=== PATIENT | female | born 1945 | race Caucasian/White ===

== ENCOUNTER 2018-03-24 13:17 | Inpatient (IN) | payer MEDICARE, OTHER ==
--- NOTE | 2018-03-24 13:31 | Emergency Department Record ---
History of Present Illness - General Chief Complaint: Back Pain/Injury Stated Complaint: BACK PAIN,INCONTROLLABLE SHAKING, HEADACHE Time Seen by Provider: 03/24/18 13:19 Source: Patient Mode of Arrival: Wheelchair Limitations: No limitations - History of Present Illness Initial Comments: 72 yo female presents with back pain and shaking all over. She reports she does have daily, chronic pain but at 5am she woke with a significant change in the pain. She has low back pain and now she feels shaky allover. She denies any fever but she does have the chills. She reports that she had lumbar surgery in [facility] last year. No fall recently. Over a month ago she fell in [place] and was evaluated in an ER. She did not have any lasting symptoms from the fall. She has not been to [facility] for about 40 years. She reports her back surgery was for spinal stenosis of the lumbar spine. She has chronic urinary incontinence, s/p bladder surgery without improvement. She does have some increased urinary frequency. She has had a mild non productive cough recently as well. She has chronic peripheral neuropathy of her feet as well. She takes Oxycontin BID for her normal pain. MD Complaint: Back pain -: Hour(s) (7) Place: Home Radiation: Other (back) Severity: Moderate Quality: Aching Consistency: Constant Improves With: None Worsens With: Walking Context: Unknown Associated Symptoms: Difficulty walking, Loss of appetite, Other (shaking) - Related Data Home Medications Medication Instructions Recorded Confirmed Last Taken Amlodipine Besylate 5 mg PO DAILY 03/24/18 03/24/18 Unknown Baclofen 10 mg PO DAILY 03/24/18 03/24/18 Unknown Folic Acid 0.8 mg PO DAILY 03/24/18 03/24/18 Unknown Gabapentin [Neurontin] 600 mg PO TID 03/24/18 03/24/18 Unknown Levothyroxine Sodium 200 mcg PO DAILY 03/24/18 03/24/18 Unknown Melatonin 20 mg PO QHS 03/24/18 03/24/18 Unknown Omeprazole 20 mg PO DAILY 03/24/18 03/24/18 Unknown Oxycodone HCl 15 mg PO Q8H 03/24/18 03/24/18 Unknown Sertraline HCl [Zoloft] 100 mg PO DAILY 03/24/18 03/24/18 Unknown Allergies Allergy/AdvReac Type Severity Reaction Status Date / Time Penicillins Allergy PT UNSURE Verified 03/24/18 13:26 OF REACTION Sulfa (Sulfonamide Allergy PT UNSURE Verified 03/24/18 13:26 Antibiotics) OF REACTION tetracycline Allergy PT UNSURE Verified 03/24/18 13:26 OF REACTION Review of Systems Constitutional: Reports: Chills Eyes: Denies: Eye discharge, Eye pain, Photophobia, Vision change ENT: Denies: Congestion, Throat pain Respiratory: Reports: Cough (mild non productive). Denies: Dyspnea Cardiovascular: Denies: Chest pain, Palpitations, Syncope Endocrine: Reports: Fatigue Gastrointestinal: Reports: Nausea. Denies: Abdominal pain, Diarrhea, Vomiting Genitourinary: Reports: Dysuria, Frequency, Incontinence, Urgency. Denies: Hematuria Musculoskeletal: Denies: Arthralgia, Back pain, Myalgia, Neck pain Skin: Denies: Bruising, Change in color, Rash Neurological: Reports: Weakness. Denies: Headache, Numbness Psychiatric: Reports: Anxiety Hematological/Lymphatic: Denies: Blood Clots, Easy bleeding, Easy bruising Physical Exam - General General Appearance: Alert, Oriented x3, Cooperative, No acute distress Limitations: No limitations - Head Head exam: Atraumatic, Normocephalic, Normal inspection - Eye Eye exam: Normal appearance, PERRL. negative: Conjunctival injection, Scleral icterus Pupils: Normal accommodation - ENT ENT exam: Normal exam Ear exam: Normal external inspection Nasal Exam: Normal inspection Mouth exam: Normal external inspection - Neck Neck exam: Normal inspection. negative: Lymphadenopathy - Respiratory Respiratory exam: Normal lung sounds bilaterally. negative: Respiratory distress, Rhonchi, Stridor, Wheezes - Cardiovascular Cardiovascular Exam: Normal rhythm, Normal heart sounds, Tachycardia. negative : Regular rate Peripheral Pulses: 2+: Radial (R), Radial (L) - GI/Abdominal GI/Abdominal exam: Soft, Other (morbid obesity but soft and non tender). negative: Distended, Rebound, Rigid, Tenderness - Rectal Rectal exam: Deferred - exam: Deferred - Extremities Extremities exam: Normal inspection, Full ROM, Normal capillary refill. negative: Calf tenderness, Pedal edema, Tenderness - Back Back exam: Reports: Normal inspection, CVA tenderness (R), CVA tenderness (L), Muscle spasm, Tenderness, Vertebral tenderness. Denies: Rash noted - Neurological Neurological exam: Alert, CN II-XII intact, Oriented X3. negative: Altered, Motor sensory deficit (sensation (chronic) decreased bilateral feet. Motor intact lower extremities, foot flexion and extension strong intact 5/5 bilateral. No foot drop. ) - Psychiatric Psychiatric exam: Anxious - Skin Skin exam: Dry, Intact, Normal color. negative: Abrasion, Cyanosis, Diaphoretic , Erythema, Mottled Course - Reevaluation(s) Reevaluation #1: [facility] was reviewed Lumbar MRI 07/2016 reviewed Moderate to Severe stenosis L3-L5 with diffuse disc bulging. 03/24/18 13:45 03/24/18 14:09 EKG #1: 1340 Rate: 103 Rhythm: sinus tachycardia [place]: normal Intervals: normal ST segments: normal Prior: none 03/24/18 14:35 The CBC was reviewed WBC count is 16 03/24/18 15:14 The CRP was reviewed. 0.6 No significant changes on the CMP 03/24/18 15:33 The UA is suspicious for infection, +2 bacteria, 6-10 WBC's, LE positive, but N- Awaiting CT report. 03/24/18 16:[address] demonstrated bilateral lower lobe infiltrates. Given the findings in the urine and CT Rocephin ordered 03/24/18 16:30 She will be admitted for IV antibiotics The patient and her request admission to [facility] I discussed the findings with Alicia Baker NP of the admission service 03/24/18 17:39 Medical Decision Making - Lab Data Result diagrams: 03/24/18 13:50 03/24/18 13:50 Disposition Disposition: Admit Clinical Impression: Urinary tract infection, Pneumonia Disposition: Still a Patient at [facility] Decision to Admit: Admit from ER Decision to Admit Date: 03/24/18 Decision to Admit Time: 16:24 Condition: (2) Stable Forms: Patient Portal Access Time of Disposition: 16:24 Quality - Quality Measures Quality Measures: N/A - Blood Pressure Screening Does Patient Have Any of the Following: No Blood Pressure Classification: Normal BP Reading Systolic Measurement: 119 Diastolic Measurement: 58 Screening for High Blood Pressure: < Normal BP, F/U Not Required > [[id number]]
[2018-03-24] MEDS ORDERED: MORPHINE SULFATE 4MG/ML PREFILLED SYRINGE IVP ONE (13:37)
[2018-03-24] MEDS ORDERED: MORPHINE SULFATE 10 MG/ML VIAL IM ONE (13:44)
[2018-03-24 14:24] LABS: BASO % 0.1 % (0-6); EOS % 0.5 % (0-6); HEMATOCRIT 43.1 % (35.0-47.0); HEMOGLOBIN 13.4 gm/dl (11.6-16.0); LYMPH % 4.9 % (16-45); MEAN CELL VOLUME 94.7 fl (81-97); MEAN CORPUSCULAR HEMOGLOBIN 29.5 pg (27-33); MEAN CORPUSCULAR HGB CONC 31.1 g/dl (32-36); MEAN PLATELET VOLUME 10.1 fl (7.4-10.4); PLATELET COUNT 217 K/uL (130-400); RED BLOOD COUNT 4.55 M/uL (3.80-5.40); WHITE BLOOD COUNT W/O DIFF 16.5 K/uL (4.2-12.2)
[2018-03-24 14:33] LABS: BILIRUBIN,TOTAL 0.3 mg/dL (0.2-1.0); TOTAL PROTEIN 7.3 g/dL (6.6-8.7)
[2018-03-24 14:38] LABS: ALB/GLOB RATIO 1.1 (1.1-1.8); ALBUMIN 3.9 g/dL (4.0-5.0); C-REACTIVE PROTEIN 0.6 mg/dL (<0.5)
[2018-03-24 14:58] LABS: URINE APPEARANCE CLEAR; URINE BILIRUBIN NEGATIVE (NEGATIVE); URINE BLOOD TRACE-L (NEGATIVE); URINE COLOR YELLOW; URINE GLUCOSE (UA) NEGATIVE (NEGATIVE); URINE KETONE NEGATIVE (NEGATIVE); URINE LEUKOCYTE ESTERASE TRACE (NEGATIVE); URINE NITRITE NEGATIVE (NEGATIVE); URINE PROTEIN TRACE (NEGATIVE); URINE UROBILINOGEN 0.2 E.U./dL (0.20 - 1.00)
[2018-03-24 15:31] LABS: URINE BACTERIA 2+
[2018-03-24 15:32] LABS: ERYTHROCYTE SEDIMENTATION RATE 16 mm/hr (0-30)
[2018-03-24] MEDS ORDERED: CEFTRIAXONE SODIUM 1 GM in 0.9 % SODIUM CHLORIDE 100ML 100 ML IVPB ONE (16:17)
[2018-03-24] MEDS ORDERED: AZITHROMYCIN 500 MG TABLET PO ONE (16:24)
[2018-03-24] MEDS ORDERED: OXYCODONE HCL 15 MG PO SCH (17:49)
[2018-03-24] MEDS ORDERED: ACETAMINOPHEN 500 MG TABLET PO PRN (17:49)
[2018-03-24] MEDS: OXYCODONE HCL 5 MG TABLET PO SCH (18:30)
[2018-03-24] MEDS ORDERED: PNEUM 13-VAL/PF 0.5 ML IM ONE (18:32)
[2018-03-24] MEDS: CEFTRIAXONE SODIUM 1 GM in 0.9 % SODIUM CHLORIDE 100ML 100 ML IVPB SCH (18:42)
[2018-03-24] MEDS: GABAPENTIN 300 MG CAPSULE PO SCH (22:26)
[2018-03-25] MEDS: OXYCODONE HCL 5 MG TABLET PO SCH ×3 (02:48→18:41)
[2018-03-25] MEDS: LEVOTHYROXINE SODIUM 100 MCG TABLET PO SCH (06:13)
[2018-03-25] MEDS: PANTOPRAZOLE SODIUM 40 MG TABLET PO SCH (06:13)
[2018-03-25 06:31] LABS: BASO % 0.1 % (0-6); GRAN % 74.3 % (47-80); HEMATOCRIT 38.4 % (35.0-47.0); HEMOGLOBIN 11.7 gm/dl (11.6-16.0); MEAN CORPUSCULAR HEMOGLOBIN 29.3 pg (27-33); MEAN CORPUSCULAR HGB CONC 30.5 g/dl (32-36); MEAN PLATELET VOLUME 9.8 fl (7.4-10.4); MONO % 7.6 % (0-9); PLATELET COUNT 204 K/uL (130-400)
[2018-03-25 07:02] LABS: ALB/GLOB RATIO 1.3 (1.1-1.8); ALBUMIN 3.6 g/dL (4.0-5.0); BILIRUBIN,TOTAL 0.4 mg/dL (0.2-1.0); TOTAL PROTEIN 6.4 g/dL (6.6-8.7)
[2018-03-25] MEDS: SERTRALINE HCL 50 MG TABLET PO SCH ×2 (08:57→10:03)
[2018-03-25] MEDS: AMLODIPINE BESYLATE 5MG TAB PO SCH (08:59)
[2018-03-25] MEDS: FOLIC ACID 1 MG TABLET PO SCH (08:59)
[2018-03-25] MEDS: GABAPENTIN 300 MG CAPSULE PO SCH ×3 (09:00→21:38)
[2018-03-25] MEDS: BACLOFEN 10 MG TABLET PO SCH (09:00)
[2018-03-25] MEDS ORDERED: AZITHROMYCIN 500 MG TABLET PO SCH (10:00)
[2018-03-25] MEDS ORDERED: LEVOTHYROXINE SODIUM 200 MCG PO SCH (10:00)
[2018-03-25] MEDS ORDERED: Non-Formulary MISC (Sertraline Hcl [Zoloft] 100 MG) PO SCH (10:00)
[2018-03-25] MEDS ORDERED: ENOXAPARIN 40 MG/0.4 ML SYR SQ SCH (10:00)
[2018-03-25] MEDS ORDERED: FOLIC ACID 0.8 MG PO SCH (10:00)
[2018-03-25] MEDS ORDERED: Non-Formulary MISC (Omeprazole [Omeprazole] 20 MG) PO SCH (10:00)
[2018-03-25] MEDS: IPRATROPIUM/ALBUTEROL (0.5MG/3MG) NEB INH SCH ×3 (11:04→23:26)
--- NOTE | 2018-03-25 11:45 | History & Physical ---
History of Present Illness - Date of Service Date of Service for History & Physical: 03/25/18 - History of Present Illness Admitting Diagnosis: UTI, Pneumonia History of Present Illness: 72 year old female presents to ED for worsening back pain and shaking all over. Patient reports chronic back pain, but states she woke up at 5am with a significant change in the pain that radiated from her back out towards her arms. Patient denied a fever but reported having the chills. Patient had a lumbar surgery in [place], [place] last year with multiple complications including a wound vac and a short stay in sub-acute rehab. Patient denies any recent fall or new injury to her back. Patient reports a nonproductive cough, intermittent shortness of breath with mild exertion, and some dysuria noted over the past several days. Her medical history includes spinal stenosis with most recent back surgery 1 year ago, gastric bypass, HTN, hypothyroidism, asthma, bladder lift for incontinence, and MANDA with home oxygen concentrator (does not tolerate CPAP). Patient takes Oxycontin BID for her chronic back pain. She spends half of her time in [place] and the remaining time in [place], living out of a travel trailer. ED Course: Lumber MRI 07/2016 reviewed-moderate to severe stenosis of L3-L5 with diffuse disc bulging EKG: Rate 103, sinus tachycardia, normal ST segment Labs: WBC 16, CRP 0.6, K+ 5.0, UA: +2 bacteria, 6-10 WBC's, leuk positive with no nitrates Chest CT demonstrated bilateral lower lobe infiltrates Started Rocephin and azithromycin for UTI and pneumonia PCP: Paula Velazquez [facility] ([place]) 03/25/18: Patient alert and oriented x 4, resting comfortably in bed. Patient on 2L oxygen this morning, no respiratory distress. Patient reports an improvement in her back pain that she had noted yesterday and feels that the shaking has stopped. Patient had low-grade temp of 99.8F in ED, no further fevers since admission, all other vitals WNL. WBC today 11, cr 1.0, CMP is pending. Blood cultures and urine culture from ED still pending. Travel Screening - Travel/Exposure Within Last 30 Days Have you traveled within the last 30 days?: Yes Location Detail:: [facility] - Travel/Exposure Within Last Year Have you traveled outside the [place] in the last year?: No - Additonal Travel Details Have you been exposed to anyone with a communicable illness?: No - Travel Symptoms Symptom Screening: Fever (Subjective) Review of Systems Constitutional: Reports: Chills Eyes: Denies: Eye discharge, Eye pain, Photophobia, Vision change ENT: Denies: Congestion, Throat pain Respiratory: Reports: Cough (mild non productive). Denies: Dyspnea Cardiovascular: Reports: Dyspnea on exertion. Denies: Chest pain, Palpitations , Syncope Endocrine: Reports: Fatigue Gastrointestinal: Reports: Nausea. Denies: Abdominal pain, Diarrhea, Vomiting Genitourinary: Reports: Dysuria, Frequency, Incontinence, Urgency. Denies: Hematuria Musculoskeletal: Denies: Arthralgia, Back pain, Myalgia, Neck pain Skin: Denies: Bruising, Change in color, Rash Neurological: Reports: Weakness. Denies: Headache, Numbness Psychiatric: Reports: Anxiety Hematological/Lymphatic: Denies: Blood Clots, Easy bleeding, Easy bruising Past Medical History - SOCIAL HISTORY Smoking Status: Former smoker Alcohol Use: Occasional Alcohol Use Comment: wine Drug Use: None - RESPIRATORY Hx Respiratory Disorders: Yes Hx Asthma: Yes Hx Pneumonia: Yes Hx Sleep Apnea: Yes Hx of CPAP: Yes - CARDIOVASCULAR Hx Cardio Disorders: Yes Hx Hypertension: Yes - NEURO Hx Neuro Disorders: Yes Hx Headaches: Yes (sinus) - GI Hx GI Disorders: Yes Hx Abdominal Pain: Yes Hx Reflux: Yes Hx Hiatal Hernia: Yes (repaired) Hx Wt Loss/Wt Gain: Yes (200lb loss) - Hx Genitourinary Disorders: Yes Hx Bladder Problem: Yes (cystocele/rectocele) Hx UTI: Yes - ENDOCRINE Hx Endocrine Disorders: Yes Hx Diabetes: No Hx Thyroid Disease: Yes - MUSCULOSKELETAL Hx Arthritis: Yes Hx Osteoporosis: No - PSYCH Hx Psych Problems: Yes Hx Depression: Yes - HEMATOLOGY/ONCOLOGY Hx Hematology/Oncology Disorders: No Hx Blood Disorders: Yes (pernicious anemia after bypass) Family Medical History Any Significant Family History?: Yes Hx Cancer: Brother/Sister Hx Diabetes: Mother Hx Heart Disease: Father, Mother Hx HTN: Mother H&P Meds/Allergies - Allergies Allergies: Allergies Allergy/AdvReac Type Severity Reaction Status Date / Time Penicillins Allergy PT UNSURE Verified 03/24/18 13:26 OF REACTION Sulfa (Sulfonamide Allergy PT UNSURE Verified 03/24/18 13:26 Antibiotics) OF REACTION tetracycline Allergy PT UNSURE Verified 03/24/18 13:26 OF REACTION - Home Medications Home Medications Medication Instructions Recorded Confirmed Last Taken Amlodipine Besylate 5 mg PO DAILY 03/24/18 03/24/18 Unknown Baclofen 10 mg PO DAILY 03/24/18 03/24/18 Unknown Folic Acid 0.8 mg PO DAILY 03/24/18 03/24/18 Unknown Gabapentin [Neurontin] 600 mg PO TID 03/24/18 03/24/18 Unknown Levothyroxine Sodium 200 mcg PO DAILY 03/24/18 03/24/18 Unknown Melatonin 20 mg PO QHS 03/24/18 03/24/18 Unknown Omeprazole 20 mg PO DAILY 03/24/18 03/24/18 Unknown Oxycodone HCl 15 mg PO Q8H PRN 03/24/18 03/24/18 Unknown Sertraline HCl [Zoloft] 100 mg PO DAILY 03/24/18 03/24/18 Unknown - Active Medications Active Medications: Current Medications Acetaminophen (Tylenol 500mg Tab) 1,000 mg PO Q6H PRN PRN Reason: PAIN - MILD(1-4)/FEVER Albuterol/Ipratropium (Duoneb) 3 ml INH RESP.Q6H.WA [facility] Last Admin: 03/25/18 11:04 Dose: 3 ml Amlodipine Besylate (Norvasc) 5 mg PO DAILY [facility] Last Admin: 03/25/18 08:59 Dose: 5 mg Baclofen (Lioresal) 10 mg PO DAILY [facility] Last Admin: 03/25/18 09:00 Dose: 10 mg Enoxaparin Sodium (Lovenox) 40 mg SQ DAILY [facility] Last Admin: 03/25/18 08:59 Dose: 40 mg Folic Acid () 1 mg PO DAILY [facility] Last Admin: 03/25/18 08:59 Dose: 1 mg Gabapentin (Neurontin) 600 mg PO TID [facility] Last Admin: 03/25/18 09:00 Dose: 600 mg Ceftriaxone Sodium 1 gm/ (Sodium Chloride) 100 mls @ 100 mls/hr IVPB Q24H [facility] Stop: 03/29/18 17:50 Last Admin: 03/24/18 18:42 Dose: Not Given Azithromycin 500 mg/ Sodium (Chloride) 250 mls @ 250 mls/hr IVPB Q24H [facility] Stop: 03/31/18 10:01 Levothyroxine Sodium (Synthroid) 200 mcg PO DAILYTHY [facility] Last Admin: 03/25/18 06:13 Dose: 200 mcg Oxycodone HCl (Oxy Ir) 15 mg PO Q8H [facility] Last Admin: 03/25/18 02:48 Dose: 15 mg Pantoprazole Sodium (Protonix) 40 mg PO DAILYAC [facility] Last Admin: 03/25/18 06:13 Dose: 40 mg Sertraline HCl (Zoloft) 100 mg PO DAILY [facility] Last Admin: 03/25/18 10:03 Dose: Not Given Physical Exam - Vital Signs Vital Signs: Vital Signs - Last 24 Hrs Temp Pulse Pulse Pulse Resp BP BP 03/25/18 11:08 18 03/25/18 05:53 68 03/25/18 02:56 98.4 F 72 18 03/24/18 19:00 98.8 F 22 129/58 03/24/18 18:57 80 18 03/24/18 16:40 99.6 F 90 20 123/75 03/24/18 15:19 99.7 F H 102 H 26 H 119/78 03/24/18 13:23 99.8 F H 118 H 20 119/58 BP Pulse Ox 03/25/18 11:08 03/25/18 05:53 95 03/25/18 02:56 124/54 97 03/24/18 19:00 98 03/24/18 18:57 03/24/18 16:40 96 03/24/18 15:19 90 L 03/24/18 13:23 93 L - General General Appearance: Alert, Oriented x3, Cooperative, No acute distress Limitations: No limitations - Head Head exam: Atraumatic, Normocephalic, Normal inspection - Eye Eye exam: Normal appearance, PERRL. negative: Conjunctival injection, Scleral icterus Pupils: Normal accommodation - ENT ENT exam: Normal exam Ear exam: Normal external inspection Nasal Exam: Normal inspection Mouth exam: Normal external inspection - Neck Neck exam: Normal inspection. negative: Lymphadenopathy - Respiratory Respiratory exam: Normal lung sounds bilaterally. negative: Respiratory distress, Rhonchi, Stridor, Wheezes - Cardiovascular Cardiovascular Exam: Normal rhythm, Normal heart sounds, Tachycardia. negative : Regular rate Peripheral Pulses: 2+: Radial (R), Radial (L), Dorsalis Pedis (R), Dorsalis Pedis (L) - GI/Abdominal GI/Abdominal exam: Soft, Other (morbid obesity but soft and non tender). negative: Distended, Rebound, Rigid, Tenderness - Rectal Rectal exam: Deferred - exam: Deferred - Extremities Extremities exam: Normal inspection, Full ROM, Normal capillary refill. negative: Calf tenderness, Pedal edema, Tenderness - Back Back exam: Reports: Normal inspection, CVA tenderness (R), CVA tenderness (L), Muscle spasm, Tenderness, Vertebral tenderness. Denies: Rash noted - Neurological Neurological exam: Alert, Oriented X3. negative: Altered, Motor sensory deficit (sensation (chronic) decreased bilateral feet. Motor intact lower extremities, foot flexion and extension strong intact 5/5 bilateral. No foot drop. ) - Psychiatric Psychiatric exam: Normal affect, Normal mood - Skin Skin exam: Dry, Intact, Normal color. negative: Abrasion, Cyanosis, Diaphoretic , Erythema, Mottled Results - Labs Result Diagrams: 03/25/18 06:15 03/25/18 06:15 Labs Last 24 Hours: Laboratory Results - last 24 hr 03/24/18 03/24/18 03/24/18 13:50 13:50 13:50 WBC 16.5 H RBC 4.55 Hgb 13.4 Hct 43.1 MCV 94.7 MCH 29.5 MCHC 31.1 L RDW 14.0 Plt Count 217 MPV 10.1 Gran % Neutrophils % 89.0 H Band Neutrophils % 0.0 Lymphocytes % 4.9 L Monocytes % 5.0 Eosinophils % 0.5 Basophils % 0.1 Lymphocytes 5.0 L Monocytes 6.0 Basophils 0.0 ESR 16 Eosinophil Count 0.0 Sodium 143 Potassium 5.0 H Chloride 99 Carbon Dioxide 23.0 Anion Gap 21.0 H BUN 17 Creatinine 1.0 H Estimated GFR 58 Random Glucose 179 H Calcium 9.0 Total Bilirubin 0.30 AST 44 H ALT 21 Alkaline Phosphatase 91 Troponin T < 0.010 C-Reactive Protein 0.60 H Total Protein 7.3 Albumin 3.9 L Globulin 3.4 Albumin/Globulin Ratio 1.1 Urine Color Urine Appearance Urine pH Ur Specific [place] Urine Protein Urine Glucose (UA) Urine Ketones Urine Blood Urine Nitrite Urine Bilirubin Urine Urobilinogen Ur Leukocyte Esterase Urine RBC Urine WBC Ur Epithelial Cells Urine Bacteria 03/24/18 03/25/1803/25/18 14:45 06:15 06:15 WBC 11.0 RBC 4.00 Hgb 11.7 Hct 38.4 MCV 96.0 MCH 29.3 MCHC 30.5 L RDW 14.0 Plt Count 204 MPV 9.8 Gran % 74.3 Neutrophils % Band Neutrophils % Lymphocytes % 16.0 Monocytes % 7.6 Eosinophils % 2.0 Basophils % 0.1 Lymphocytes Monocytes Basophils ESR Eosinophil Count Sodium Potassium Chloride Carbon Dioxide 28.0 Anion Gap BUN 17 Creatinine 1.0 H Estimated GFR 58 Random Glucose 113 H Calcium 8.9 Total Bilirubin 0.40 AST 26 ALT 18 Alkaline Phosphatase 74 Troponin T C-Reactive Protein Total Protein 6.4 L Albumin 3.6 L Globulin 2.8 Albumin/Globulin Ratio 1.3 Urine Color Yellow Urine Appearance Clear Urine pH 5.5 Ur Specific [place] >= 1.030 Urine Protein Trace H Urine Glucose (UA) Negative Urine Ketones Negative Urine Blood Trace-l Urine Nitrite Negative Urine Bilirubin Negative Urine Urobilinogen 0.2 Ur Leukocyte Esterase Trace H Urine RBC 3 - 6 Urine WBC 6 - 10 Ur Epithelial Cells 7 - 10 Urine Bacteria 2+ VTE H&P Assessment - Risk for VTE Risk for VTE: Yes Risk Level: Moderate Risk Assessment Date: 03/25/18 Risk Assessment Time: 11:46 VTE Orders Placed or Will Be Placed: Yes Plan - Inpatient Certification Inpatient Certification: Admit to inpatient care: Based on my medical assessment, after consideration of patient's risk factors (age, co-morbidities and patient presenting symptoms and acuity), I expect that this patient will remain in the hospital greater than or equal to two midnights and that the services needed warrant inpatient care because: Patient Risk Factors: [age, obesity, pna, uti] Estimated length of stay: [up to 96 hours] The patient may reasonably be expected to be discharged or transferred to a hospital within 96 hours after admission to [facility]. Services needed: [IV antibiotics, nebulized breathing treatments, supplemental oxygen] Post hospital care (if known): [] I certify that my determination is in accordance with my understanding of Medicare requirements for reasonable and necessary inpatient services. 03/25/18 11:46 - Detailed Diagnosis and Plan (1) Urinary tract infection Current Visit: Yes Status: Acute Base Code: N39.0 - URINARY TRACT INFECTION , SITE NOT SPECIFIED Comment: 03/25/18: UA in ED positive for leukocytes with no nitrates, few WBCs noted. Patient reports mild dysuria, chronic incontinence. -IV rocephin started (2) Pneumonia Current Visit: Yes Status: Acute Base Code: J18.9 - PNEUMONIA, UNSPECIFIED ORGANISM Comment: 03/25/18: Chest CT in ED demonstrated bilateral lowe lobe infiltrates. Low-grade temp of 99.8, increased oxygen needs -Use supplemental oxygen prn to keep pulse ox >90% -Duoneb nmt prn -Zithromax and Rocephin -Encouraged IS use and deep breathing -WBC decreased to 11 today, will recheck CBC tomorrow (3) Hyperkalemia Current Visit: Yes Status: Acute Base Code: E87.5 - HYPERKALEMIA Comment: 03/25/18: K+ in ED was 5.0. CMP repeated this morning, results pending. Will consider kayexalate if it remains high. (4) DVT prophylaxis Current Visit: Yes Status: Acute Base Code: [id number] - Comment: 03/25/18: moderate risk due to age, obesity, decreased mobility, and illness -Lovenox 40mg SQ qd (5) Full code status Current Visit: Yes Status: Acute Base Code: Z78.9 - OTHER SPECIFIED HEALTH STATUS Comment: 03/25/18: Full code status
[2018-03-25] MEDS ORDERED: ZINC OXIDE 28.35 GM TUBE TOP ONE (15:33)
[2018-03-25] MEDS: CEFTRIAXONE SODIUM 1 GM in 0.9 % SODIUM CHLORIDE 100ML 100 ML IVPB SCH (17:29)
[2018-03-26] MEDS: OXYCODONE HCL 5 MG TABLET PO SCH ×3 (00:17→10:50)
[2018-03-26] MEDS: IPRATROPIUM/ALBUTEROL (0.5MG/3MG) NEB INH SCH ×2 (05:48→10:01)
[2018-03-26] MEDS: LEVOTHYROXINE SODIUM 100 MCG TABLET PO SCH (06:23)
[2018-03-26] MEDS: PANTOPRAZOLE SODIUM 40 MG TABLET PO SCH (06:23)
[2018-03-26 06:36] LABS: CREATININE 1.1 mg/dL (0.5-0.9)
[2018-03-26 07:43] LABS: BASO % 0.2 % (0-6); GRAN % 65.6 % (47-80); HEMATOCRIT 37.8 % (35.0-47.0); HEMOGLOBIN 11.4 gm/dl (11.6-16.0); LYMPH % 19.8 % (16-45); MEAN CELL VOLUME 96.7 fl (81-97); MEAN CORPUSCULAR HGB CONC 30.2 g/dl (32-36); MEAN PLATELET VOLUME 10.1 fl (7.4-10.4); MONO % 10.4 % (0-9); PLATELET COUNT 205 K/uL (130-400); RED BLOOD COUNT 3.91 M/uL (3.80-5.40); RED CELL DISTRIBUTION WIDTH 13.9 % (11.5-14.5); WHITE BLOOD COUNT W/O DIFF 8.1 K/uL (4.2-12.2)
[2018-03-26 07:45] LABS: MEAN CORPUSCULAR HEMOGLOBIN 29.1 pg (27-33)
--- NOTE | 2018-03-26 09:49 | Discharge Summary ---
Providers Discharge Summary Date: 03/26/18 Date of admission: 03/24/18 17:40 Expected Date of Discharge: 03/26/18 Attending physician: LAURA PAIGE Primary care physician: Paula Tanner NP Physical Exam - Vital Signs Vital Signs: Vital Signs - Last 24 Hrs Temp Pulse Pulse Pulse Resp BP BP 03/26/18 05:48 69 16 03/26/18 02:00 98.0 F 68 18 194/83 03/25/18 23:26 96 H 16 03/25/18 21:00 82 18 03/25/18 18:00 82 18 148/69 03/25/18 17:06 20 03/25/18 14:13 18 03/25/18 14:12 81 18 03/25/18 11:08 18 03/25/18 11:00 97.3 F L 95 H 20 132/62 Pulse Ox 03/26/18 05:48 99 03/26/18 02:00 94 L 03/25/18 23:26 92 L 03/25/18 21:00 03/25/18 18:00 99 03/25/18 17:06 03/25/18 14:13 03/25/18 14:12 93 L 03/25/18 11:08 03/25/18 11:00 95 - General General Appearance: Alert, Oriented x3, Cooperative, No acute distress Limitations: No limitations - Head Head exam: Atraumatic, Normocephalic, Normal inspection - Eye Eye exam: Normal appearance, PERRL. negative: Conjunctival injection, Scleral icterus Pupils: Normal accommodation - ENT ENT exam: Normal exam Ear exam: Normal external inspection Nasal Exam: Normal inspection Mouth exam: Normal external inspection - Neck Neck exam: Normal inspection. negative: Lymphadenopathy - Respiratory Respiratory exam: Wheezes (upper expiratory). negative: Respiratory distress, Rhonchi, Stridor - Cardiovascular Cardiovascular Exam: Normal rhythm, Normal heart sounds, Tachycardia. negative : Regular rate Peripheral Pulses: 2+: Radial (R), Radial (L), Dorsalis Pedis (R), Dorsalis Pedis (L) - GI/Abdominal GI/Abdominal exam: Soft, Other (morbid obesity but soft and non tender). negative: Distended, Rebound, Rigid, Tenderness - Rectal Rectal exam: Deferred - exam: Deferred - Extremities Extremities exam: Normal inspection, Full ROM, Normal capillary refill. negative: Calf tenderness, Pedal edema, Tenderness - Back Back exam: Reports: Normal inspection, Muscle spasm, Tenderness, Vertebral tenderness. Denies: Rash noted - Neurological Neurological exam: Alert, Normal gait, Oriented X3. negative: Altered, Motor sensory deficit (sensation (chronic) decreased bilateral feet. Motor intact lower extremities, foot flexion and extension strong intact 5/5 bilateral. No foot drop. ) - Psychiatric Psychiatric exam: Normal affect, Normal mood - Skin Skin exam: Dry, Intact, Normal color. negative: Abrasion, Cyanosis, Diaphoretic , Erythema, Mottled Hospitalization - Hospitalization Admission Diagnosis: UTI, Pneumonia - Problem List/Discharge Diagnosis (1) Urinary tract infection Current Visit: Yes Status: Acute Base Code: N39.0 - URINARY TRACT INFECTION , SITE NOT SPECIFIED Comment: 03/26/18: UA in ED positive for leukocytes with no nitrates, few WBCs noted. Patient reports mild dysuria, chronic incontinence. -IV rocephin started -Has remained afebrile since admission (2) Pneumonia Current Visit: Yes Status: Acute Base Code: J18.9 - PNEUMONIA, UNSPECIFIED ORGANISM Comment: 03/26/18: Chest CT in ED demonstrated bilateral lowe lobe infiltrates. Low-grade temp of 99.8, increased oxygen needs upon admission -Room air today, pulse ox >92% -Duoneb nmt prn -Zithromax and Rocephin -Encouraged IS use and deep breathing -WBC decreased to 8.1 today (3) Hyperkalemia Current Visit: Yes Status: Acute Base Code: E87.5 - HYPERKALEMIA Comment: 03/26/18: K+ in ED was 5.0. -Repeat K+ was 4.3 (4) DVT prophylaxis Current Visit: Yes Status: Acute Base Code: [id number] - Comment: 03/26/18: moderate risk due to age, obesity, decreased mobility, and illness -Lovenox 40mg SQ qd. Will dc at discharge as patient will resume normal activity (5) Full code status Current Visit: Yes Status: Acute Base Code: Z78.9 - OTHER SPECIFIED HEALTH STATUS Comment: 03/26/18: Full code status - Hospitalization Course Disposition: Home, Self-Care Hospital Course: 72 year old female presents to ED for worsening back pain and shaking all over. Patient reports chronic back pain, but states she woke up at 5am with a significant change in the pain that radiated from her back out towards her arms. Patient denied a fever but reported having the chills. Patient had a lumbar surgery in [place], [place] last year with multiple complications including a wound vac and a short stay in sub-acute rehab. Patient denies any recent fall or new injury to her back. Patient reports a nonproductive cough, intermittent shortness of breath with mild exertion, and some dysuria noted over the past several days. Her medical history includes spinal stenosis with most recent back surgery 1 year ago, gastric bypass, HTN, hypothyroidism, asthma, bladder lift for incontinence, and MANDA with home oxygen concentrator (does not tolerate CPAP). Patient takes Oxycontin BID for her chronic back pain. She spends half of her time in [place] and the remaining time in [place], living out of a travel trailer. ED Course: [place] MRI 07/2016 reviewed-moderate to severe stenosis of L3-L5 with diffuse disc bulging EKG: Rate 103, sinus tachycardia, normal ST segment Labs: WBC 16, CRP 0.6, K+ 5.0, UA: +2 bacteria, 6-10 WBC's, leuk positive with no nitrates Chest CT demonstrated bilateral lower lobe infiltrates Started Rocephin and azithromycin for UTI and pneumonia PCP: Paula Velazquez RADIOLOGY RESIDENT ([place]) 03/25/18: Patient alert and oriented x 4, resting comfortably in bed. Patient on 2L oxygen this morning, no respiratory distress. Patient reports an improvement in her back pain that she had noted yesterday and feels that the shaking has stopped. Patient had low-grade temp of 99.8F in ED, no further fevers since admission, all other vitals WNL. WBC today 11, cr 1.0, CMP is pending. Blood cultures and urine culture from ED still pending. 03/26/2018: Patient A&O x 4, no distress at this time. Patient sitting on edge of bed, on room air. Has remained afebrile since admission, WBC trending down. Patient reports significant improvement in back pain, feels she is back to her baseline for chronic back pain. Patient will be dc on Ceftin for coverage of PNA and UTI. Patient to follow-up with PCP in 2 weeks or sooner if symptoms worsen. Procedures: Imaging and X-Rays 03/24/18 14:35 ABDOMEN/PELVIS WO CONTRAST [CT] Stat Cardiology Procedures 03/24/18 13:25 Scale Tank Operator NOW 03/24/18 13:32 EKG NOW 03/24/18 17:49 Scale Tank Operator .Continuous Abnormal Labs: Abnormal Lab Results 03/24/18 03/24/18 03/24/18 Range/Units 13:50 13:50 14:45 WBC 16.5 H (4.2-12.2) K/uL Hgb (11.6-16.0) gm/dl MCHC 31.1 L (32-36) g/dl Neutrophils % 89.0 H (47-80) % Lymphocytes % 4.9 L (16-45) % Monocytes % (0-9) % Lymphocytes 5.0 L (16-45) % Potassium 5.0 H (3.4-4.5) mmol/L Carbon Dioxide (22-29) mmol/L Anion Gap 21.0 H (7-16) Creatinine 1.0 H (0.5-0.9) mg/dL Random Glucose 179 H (74-109) mg/dL AST 44 H (10.0-35.0) U/L C-Reactive Protein 0.60 H (<0.5) mg/dL Total Protein (6.6-8.7) g/dL Albumin 3.9 L (4.0-5.0) g/dL Urine Protein Trace H (NEGATIVE) Ur Leukocyte Esterase Trace H (NEGATIVE) 03/25/18 03/25/18 03/26/18 Range/Units 06:15 06:15 06:05 WBC (4.2-12.2) K/uL Hgb 11.4 L (11.6-16.0) gm/dl MCHC 30.5 L 30.2 L (32-36) g/dl Neutrophils % (47-80) % Lymphocytes % (16-45) % Monocytes % 10.4 H (0-9) % Lymphocytes (16-45) % Potassium (3.4-4.5) mmol/L Carbon Dioxide (22-29) mmol/L Anion Gap (7-16) Creatinine 1.0 H (0.5-0.9) mg/dL Random Glucose 113 H (74-109) mg/dL AST (10.0-35.0) U/L C-Reactive Protein (<0.5) mg/dL Total Protein 6.4 L (6.6-8.7) g/dL Albumin 3.6 L (4.0-5.0) g/dL Urine Protein (NEGATIVE) Ur Leukocyte Esterase (NEGATIVE) 03/26/18 Range/Units 06:05 WBC (4.2-12.2) K/uL Hgb (11.6-16.0) gm/dl MCHC (32-36) g/dl Neutrophils % (47-80) % Lymphocytes % (16-45) % Monocytes % (0-9) % Lymphocytes (16-45) % Potassium (3.4-4.5) mmol/L Carbon Dioxide 30.0 H (22-29) mmol/L Anion Gap (7-16) Creatinine 1.1 H (0.5-0.9) mg/dL Random Glucose 112 H (74-109) mg/dL AST (10.0-35.0) U/L C-Reactive Protein (<0.5) mg/dL Total Protein (6.6-8.7) g/dL Albumin (4.0-5.0) g/dL Urine Protein (NEGATIVE) Ur Leukocyte Esterase (NEGATIVE) Condition at Discharge: (2) Stable VTE Discharge VTE Reason For No Overlap Therapy: Not Indicated Discharge Medications - Discharge Medications Prescriptions: Cefdinir [Omnicef] 300 mg PO BID #10 cap Ipratropium/Albuterol [Duoneb] 3 ml INH RESP.Q6H.WA PRN #30 ampul.neb PRN Reason: Wheezing Home Medications: Ambulatory Orders Amlodipine Besylate 5 mg PO DAILY 03/24/18 [Last Taken Unknown] Baclofen 10 mg PO DAILY 03/24/18 [Last Taken Unknown] Folic Acid 0.8 mg PO DAILY 03/24/18 [Last Taken Unknown] Gabapentin [Neurontin] 600 mg PO TID 03/24/18 [Last Taken Unknown] Levothyroxine Sodium 200 mcg PO DAILY 03/24/18 [Last Taken Unknown] Melatonin 20 mg PO QHS 03/24/18 [Last Taken Unknown] Omeprazole 20 mg PO DAILY 03/24/18 [Last Taken Unknown] Oxycodone HCl 15 mg PO Q8H PRN 03/24/18 [Last Taken Unknown] Sertraline HCl [Zoloft] 100 mg PO DAILY 03/24/18 [Last Taken Unknown] Cefdinir [Omnicef] 300 mg PO BID #10 cap 03/26/18 [Last Taken Unknown] Ipratropium/Albuterol [Duoneb] 3 ml INH RESP.Q6H.WA PRN #30 ampul.neb 03/26/18 [ Last Taken Unknown] Discharge Plan - Discharge Instructions Activity at Discharge: Increase Activity as Tolerated Diet at Discharge: Regular Diet Additional Instructions: Take the CEFDINIR twice a day for 5 days Use the ALBUTEROL nebulizer treatments up to 4 times a day as needed Follow-up with your PCP as scheduled in 2 weeks. Quality Measures - Quality Measures Quality Measures: Advance Directives, Documentation of Current Medications in Medical Record, Elder Maltreatment Screen and Follow-Up Plan, Screening for High Blood Pressure and F/U Documented - Current Medications Quality Measure: Measure #130: Documentation of Current Medications Documentation of Current Medications: <Current Medications Documented/Reviewed> [G8427] - Blood Pressure Screening Quality Measure: Screening for High Blood Pressure and Follow-Up Documented Does Patient Have Any of the Following: Active Dx of HTN Blood Pressure Classification: Normal BP Reading Systolic Measurement: 119 Diastolic Measurement: 58 Screening for High Blood Pressure: Patient Exclusion, Hx of HTN [G9744] - Advance Directives Quality Measure: Measure #47: Care Plan Advance Directives Established: No Advance Directives Information Provided To Patient: Yes Advance Directives on File: No Living Will: No Power of [place]: No Advance Care Planning: <Care Plan/Decision Maker Not Decided; Discussed & Documented> [1124F] - Elder Abuse Suspicion Index Screening: Elder Abuse Suspicion Index Screening Rely on people for bathing, dressing, shopping, banking, etc: No Prevented from getting food, clothes, medication, etc: No Made to feel shamed or threatened by someone: No Forced to sign papers or use money against will: No Feel afraid, touched in ways not wanted or hurt physically: No Poor eye contact, withdrawn, malnourished, cuts or bruises: No Screening Result: Negative result EASI Reference Information: Ping SMITH, Mary C, Pedro D, Tito Azar.Development and validation of a tool to assist physicians identification of elder abuse: The Elder Abuse Suspicion Index (EASI ). Journal of Elder Abuse and Neglect, 2008; 20 (3): 276-300. - Elder Maltreatment Screen Quality Measures: Elder Maltreatment Screen and Follow-Up Plan Elder Maltreatment Screen: <Negative, No Follow-Up Plan Required> [G8734]
[2018-03-26] MEDS ORDERED: AZITHROMYCIN 500 MG in 0.9 % SODIUM CHLORIDE 250ML 250 ML IVPB SCH (10:00)
[2018-03-26] MEDS: GABAPENTIN 300 MG CAPSULE PO SCH (10:47)
[2018-03-26] MEDS: BACLOFEN 10 MG TABLET PO SCH (10:48)
[2018-03-26] MEDS: FOLIC ACID 1 MG TABLET PO SCH (10:48)
[2018-03-26] MEDS: SERTRALINE HCL 50 MG TABLET PO SCH (10:48)
[2018-03-26] MEDS: AMLODIPINE BESYLATE 5MG TAB PO SCH (10:49)
--- NOTE | 2018-03-26 19:19 | CT SCAN REPORT ---
EXAM: CT SCAN ABDOMEN/PELVIS WO CONTRAST HISTORY: ABDOMINAL PAIN, SHAKING. TECHNIQUE: Sequential axial images were obtained from the diaphragms through the ischiorectal fossa without intravenous or oral contrast administration. FINDINGS: The heart size is normal. There are bilateral lower lobe infiltrates. The liver appears normal. The gallbladder is surgically removed. The pancreas and spleen appear normal. The adrenal glands and kidneys appear normal. There are no CT findings suggestive of obstructive uropathy. The small and large bowel appears normal. There is atherosclerotic change of the abdominal vasculature. There is post-op surgical change in the lumbar spine. IMPRESSION: 1. BILATERAL LOWER LOBE INFILTRATES. 2. NO CT FINDINGS SUGGESTIVE OF OBSTRUCTIVE UROPATHY. 3. POST-OP SURGICAL CHANGE IN THE LUMBAR SPINE. JOB NUMBER: [id number] [facility]
== END 2018-03-26 11:04 | disposition home or self-care (01) | DRG 689 ==
LOC: ER 13:17 → MEDSURG 17:40
PROVIDERS: ADMIT Internal Medicine; ATTEND Internal Medicine
DX: N39.0 Urinary tract infection, site not specified (principal); J18.9 Pneumonia, unspecified organism; E87.5 Hyperkalemia; R51 Headache; G62.9 Polyneuropathy, unspecified; G89.4 Chronic pain syndrome; M48.061 Spinal stenosis, lumbar region without neurogenic claudication; I10 Essential (primary) hypertension; E03.9 Hypothyroidism, unspecified; J45.909 Unspecified asthma, uncomplicated; G47.30 Sleep apnea, unspecified; K21.9 Gastro-esophageal reflux disease without esophagitis; Z86.14 Personal history of Methicillin resistant Staphylococcus aureus infection; Z87.891 Personal history of nicotine dependence; R68.83 Chills (without fever); D51.0 Vitamin B12 deficiency anemia due to intrinsic factor deficiency
CPT/HCPCS: 85651; 86140; 80053; 81001; 84484; 85027; 74176; 93005; 93010; J2270; 80048; 85025; 90670; 94640; 94762; 96365; 96366; 96372; 99223; 99239; 99285; J1650

== ENCOUNTER 2019-05-13 13:40 | Observation (INO) | payer MEDICARE ==
[2019-05-13 14:15] LABS: ABSOLUTE NEUTROPHIL COUNT 9.58; BASO % 0.2 % (0-6); EOS % 2.2 % (0-6); GRAN % 77.2 % (47-80); HEMATOCRIT 45.9 % (35.0-47.0); HEMOGLOBIN 14.6 gm/dl (11.6-16.0); LYMPH % 13.6 % (16-45); MEAN CELL VOLUME 94.1 fl (81-97); MEAN CORPUSCULAR HEMOGLOBIN 29.9 pg (27-33); MEAN CORPUSCULAR HGB CONC 31.8 g/dl (32-36); MEAN PLATELET VOLUME 9.6 fl (7.4-10.4); MONO % 6.8 % (0-9); PLATELET COUNT 278 K/uL (130-400); RED BLOOD COUNT 4.88 M/uL (3.80-5.40); RED CELL DISTRIBUTION WIDTH 14.9 % (11.5-14.5); WHITE BLOOD COUNT W/O DIFF 12.4 K/uL (4.2-12.2)
--- NOTE | 2019-05-13 14:46 | Emergency Department Record ---
History of Present Illness - General Chief complaint: Fatigue and Weakness Stated complaint: SHAKEY/FALL Time Seen by Provider: 05/13/19 14:02 Source: Patient, RN notes reviewed Mode of Arrival: EMS - History of Present Illness Initial comments: fell without injuries and she has been having shaking episodes for two days. Onset/Timin -: Minutes(s) Location: Generalized Severity: Moderate Severity scale (1-10): 3 Quality: Aching Consistency: Constant Improves with: Rest Worsens with: Movement Associated Symptoms: Denies other symptoms - [place] Coma Scale Eye Response: (4) Open spontaneously Motor Response: (6) Obeys commands Verbal Response: (5) Oriented [place] Total: 15 - Related Data Home Medications Medication Instructions Recorded Confirmed Last Taken Duloxetine HCl 60 mg PO DAILY 05/13/19 05/13/19 1 Day Ago ~05/12/19 Ferrous Sulfate 325 mg PO BID 05/13/19 05/13/19 1 Day Ago ~05/12/19 Fluticasone/Vilanterol 200/25 1 puff INH RESP.DAILY 05/13/19 05/13/19 1 Day Ago [Breo Ellipta 200-25 Mcg INH] ~05/12/19 Meloxicam [Mobic] 15 mg PO DAILY 05/13/19 05/13/19 1 Day Ago ~05/12/19 Multivitamin [Multiple Vitamins] 1 each PO DAILY 05/13/19 05/13/19 1 Day Ago ~05/12/19 Primidone [Mysoline] 50 mg PO QID 05/13/19 05/13/19 1 Day Ago ~05/12/19 Previous Rx's Medication Instructions Recorded Ipratropium/Albuterol [Duoneb] 3 ml INH RESP.Q6H.WA PRN #30 03/26/18 ampul.neb Triamcinolone Acetonide [Trianex] 1 apply TP BID #15 g 05/25/18 Allergies Allergy/AdvReac Type Severity Reaction Status Date / Time Iodine and Iodide Containing Allergy HIVES Verified 05/13/19 13:57 Produc Penicillins Allergy PT UNSURE Verified 05/13/19 13:57 OF REACTION pregabalin [From Lyrica] Allergy NEUROTOXICI Verified 05/13/19 13:57 TY Sulfa (Sulfonamide Allergy PT UNSURE Verified 05/13/19 13:57 Antibiotics) OF REACTION tetracycline Allergy PT UNSURE Verified 05/13/19 13:57 OF REACTION Travel Screening - Travel/Exposure Within Last 30 Days Have you traveled within the last 30 days?: No - Travel/Exposure Within Last Year Have you traveled outside the [place] in the last year?: No - Additonal Travel Details Have you been exposed to anyone with a communicable illness?: No - Travel Symptoms Symptom Screening: None Review of Systems Reviewed: No additional complaints except as noted below Constitutional: Reports: As per HPI. Denies: Chills, Fever, Malaise, Night s weats, Weakness, Weight change Eyes: Reports: As per HPI. Denies: Eye discharge, Eye pain, Photophobia, Vision change ENT: Reports: As per HPI. Denies: Congestion, Dental pain, Ear pain, Epistaxis, Hearing loss, Throat pain Respiratory: Reports: As per HPI. Denies: Cough, Dyspnea, Hemoptysis, Stridor, Wheezes Cardiovascular: Reports: As per HPI. Denies: Arrhythmia, Chest pain, Dyspnea on exertion, Edema, Murmurs, Orthopnea, Palpitations, Paroxysmal nocturnal dyspnea, Rheumatic Fever, Syncope Endocrine: Reports: As per HPI. Denies: Fatigue, Heat or cold intolerance, Polydipsia, Polyuria Gastrointestinal: Reports: As per HPI. Denies: Abdominal pain, Constipation, Diarrhea, Hematemesis, Hematochezia, Melena, Nausea, Vomiting Genitourinary: Reports: As per HPI. Denies: Abnormal menses, Discharge, Dyspareunia, Dysuria, Frequency, Hematuria, Incontinence, Retention, Urgency Musculoskeletal: Reports: As per HPI. Denies: Arthralgia, Back pain, Gout, Joint swelling, Myalgia, Neck pain Skin: Reports: As per HPI. Denies: Bruising, Change in color, Change in sourav r/nails, Lesions, Pruritus, Rash Neurological: Reports: As per HPI. Denies: Abnormal gait, Confusion, Headache, Numbness, Paresthesias, Seizure, Tingling, Tremors, Vertigo, Weakness Psychiatric: Reports: As per HPI. Denies: Anxiety, Auditory hallucinations, Depression, Homicidal thoughts, Suicidal thoughts, Visual hallucinations Hematological/Lymphatic: Reports: As per HPI. Denies: Anemia, Blood Clots, Easy bleeding, Easy bruising, Swollen glands Past Medical History - SOCIAL HISTORY Smoking Status: Former smoker Alcohol Use: None Drug Use: None - RESPIRATORY Hx Respiratory Disorders: Yes Hx Asthma: Yes Hx Pneumonia: Yes Hx Sleep Apnea: Yes (WEARS O2 AT HOME) Hx of CPAP: Yes - CARDIOVASCULAR Hx Cardio Disorders: Yes Hx Hypertension: Yes Hx Irregular Heartbeat: Yes (no medications) - NEURO Hx Neuro Disorders: Yes Hx Headaches: Yes (sinus) - GI Hx GI Disorders: Yes Hx Abdominal Pain: Yes Hx Reflux: Yes Hx Hiatal Hernia: Yes (repaired) Hx Wt Loss/Wt Gain: Yes (200lb loss since bypass) - Hx Genitourinary Disorders: Yes Hx Bladder Problem: Yes (cystocele/rectocele) Hx UTI: Yes - ENDOCRINE Hx Endocrine Disorders: Yes Hx Diabetes: No Hx Thyroid Disease: Yes - MUSCULOSKELETAL Hx Arthritis: Yes Hx Fibromyalgia: Yes Hx Osteoporosis: No - PSYCH Hx Psych Problems: Yes Hx Depression: Yes - HEMATOLOGY/ONCOLOGY Hx Hematology/Oncology Disorders: No Hx Blood Disorders: Yes (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 negative: External canal tenderness Nasal Exam: Normal inspection. negative: Discharge, Sinus tenderness Mouth exam: Normal external inspection, Tongue normal Teeth exam: Normal inspection. negative: Dental caries Throat exam: Normal inspection. negative: Tonsillar erythema, Tonsillar exudate - Neck Neck exam: Normal inspection, Full ROM. negative: Tenderness - Respiratory Respiratory exam: Normal lung sounds bilaterally. negative: Respiratory distress - Cardiovascular Cardiovascular Exam: Regular rate, Normal rhythm, Normal heart sounds - GI/Abdominal GI/Abdominal exam: Soft, Normal bowel sounds. negative: Tenderness - Rectal Rectal exam: Deferred - exam: Deferred - Extremities Extremities exam: Normal inspection, Full ROM, Normal capillary refill. negative: Tenderness - Back Back exam: Reports: Normal inspection, Full ROM. Denies: Muscle spasm, Rash noted, Tenderness - Neurological Neurological exam: Alert, Normal gait, Oriented X3, Reflexes normal - Psychiatric Psychiatric exam: Normal affect, Normal mood - Skin Skin exam: Dry, Intact, Normal color, Warm Course Vital Signs 05/13/19 13:46 Temperature 98.8 F Pulse Rate 71 Respiratory 18 Rate Blood Pressure 156/74 Pulse Ox 99 - Reevaluation(s) Reevaluation #1: to weak to get up of the bed 05/13/19 16:26 Medical Decision Making - Data Complexity MDM Data: Labs Ordered and/or Reviewed (BUN 24 , Creat 1.0, WBC 12,400, K4.5), X-Ray Ordered and/or Reviewed (chest reticular findings nothing acute) - Lab Data Result diagrams: 05/13/19 13:24 05/13/19 13:24 Lab Results 05/13/19 Range/Units 13:24 WBC 12.4 H (4.2-12.2) K/uL RBC 4.88 (3.80-5.40) M/uL Hgb 14.6 (11.6-16.0) gm/dl Hct 45.9 (35.0-47.0) % MCV 94.1 (81-97) fl MCH 29.9 (27-33) pg MCHC 31.8 L (32-36) g/dl RDW 14.9 H (11.5-14.5) % Plt Count 278 (130-400) K/uL MPV 9.6 (7.4-10.4) fl Gran % 77.2 (47-80) % Lymphocytes % 13.6 L (16-45) % Monocytes % 6.8 (0-9) % Eosinophils % 2.2 (0-6) % Basophils % 0.2 (0-6) % Absolute Neutrophils 9.58 Disposition Clinical Impression: Dehydration, Weakness, Unable to walk Decision to Admit: Admit from ER Condition: (2) Stable Forms: Patient Portal Access Time of Disposition: 16:25 Quality - Quality Measures Quality Measures: N/A - Blood Pressure Screening Does Patient Have Any of the Following: No, Active Dx of HTN Blood Pressure Classification: Hypertensive Reading Systolic Measurement: 156 Diastolic Measurement: 74 Screening for High Blood Pressure: Patient Exclusion, Hx of HTN [G9744]
[2019-05-13 15:03] LABS: URINE APPEARANCE CLEAR; URINE BILIRUBIN NEGATIVE (NEGATIVE); URINE BLOOD NEGATIVE (NEGATIVE); URINE COLOR STRAW; URINE GLUCOSE (UA) NEGATIVE (NEGATIVE); URINE KETONE NEGATIVE (NEGATIVE); URINE LEUKOCYTE ESTERASE NEGATIVE (NEGATIVE); URINE NITRITE NEGATIVE (NEGATIVE); URINE PROTEIN NEGATIVE (NEGATIVE); URINE UROBILINOGEN 0.2 E.U./dL (0.20 - 1.00)
[2019-05-13 15:08] LABS: URINE EPITHELIAL CELLS NONE SEEN (FEW); URINE RBC NONE SEEN (NONE SEEN); URINE WBC 0 - 2 (0-2/hpf)
[2019-05-13] MEDS: 0.9 % SODIUM CHLORIDE 1000ML 1,000 ML IV PRN ×2 (15:15→22:57)
[2019-05-13] MEDS ORDERED: IPRATROPIUM/ALBUTEROL (0.5MG/3MG) NEB INH PRN (16:31)
[2019-05-13] MEDS ORDERED: 0.9 % SODIUM CHLORIDE 1000ML 3,000 ML IV PRN (17:22)
[2019-05-13] MEDS: GABAPENTIN 300 MG CAPSULE PO SCH (21:03)
[2019-05-13] MEDS: MYSOLINE MC SCH ×2 (21:03→21:06)
[2019-05-13] MEDS: FERROUS SULFATE 325 MG TAB PO SCH (21:03)
[2019-05-13] MEDS ORDERED: MELATONIN 5 MG TABLET PO SCH (22:00)
[2019-05-14] MEDS ORDERED: BREO (FLUTICASONE/VILANTEROL) 200MCG/25MCG INHALER INH SCH ×2 (06:00→10:00)
[2019-05-14] MEDS ORDERED: PANTOPRAZOLE SODIUM 40 MG TABLET PO SCH (07:00)
[2019-05-14] MEDS ORDERED: LEVOTHYROXINE SODIUM 100 MCG TABLET PO SCH (07:00)
--- NOTE | 2019-05-14 09:57 | RADIOLOGY REPORT ---
EXAM: CHEST, TWO VIEWS HISTORY: WEAKNESS. FALL. TECHNIQUE: Upright PA and lateral views of the chest were obtained. Comparison: CTA examination dated 05/24/18. FINDINGS: The heart projects borderline enlarged. No pulmonary venous hypertension is seen. The thoracic aorta is mildly tortuous and atherosclerotic. The right hilum again appears borderline to mildly prominent though unchanged since the 05/24/18 CTA examination. On the CTA examination prominent reticular and ground glass opacities were noted in this region. Additionally there is mild prominence of mixed primarily reticular opacities in the left perihilar and basilar portions of each lung. No gross lung consolidation, costophrenic angle blunting or pneumothorax. The lung volumes are low. IMPRESSION: 1. LOW LUNG VOLUMES. MIXED PRIMARILY RETICULAR OPACITIES IN THE PERIHILAR AND BASILAR PORTIONS OF THE LUNGS. DIAGNOSTIC CONSIDERATIONS INCLUDE CHRONIC INTERSTITIAL CHANGE VERSUS EDEMA AND INFILTRATE. 2. APPARENT BORDERLINE TO MILD PROMINENCE OF THE RIGHT HILUM IS STABLE SINCE 05/24/18. JOB [facility]BER: [id number] [facility]
[2019-05-14] MEDS ORDERED: BACLOFEN 10 MG TABLET PO SCH (10:00)
[2019-05-14] MEDS ORDERED: MELOXICAM 7.5 MG TABLET PO SCH (10:00)
[2019-05-14] MEDS: GABAPENTIN 300 MG CAPSULE PO SCH ×2 (10:00→15:23)
[2019-05-14] MEDS: FERROUS SULFATE 325 MG TAB PO SCH (10:00)
[2019-05-14] MEDS ORDERED: DULOXETINE HCL 30 MG CAPSULE.DR PO SCH (10:00)
[2019-05-14] MEDS ORDERED: MULTIVITAMINS/MINERALS TABLET PO SCH (10:00)
[2019-05-14] MEDS ORDERED: AMLODIPINE BESYLATE 5MG TAB PO SCH (10:00)
[2019-05-14] MEDS: MYSOLINE MC SCH ×2 (10:02→10:13)
--- NOTE | 2019-05-14 11:23 | Rehab Evaluation ---
Patient Information - Patient Information Diagnosis: dehydration, weakness Ordered Treatment: PT Evaluate and Treat Status: Initial Evaluation History: Detail (Patient arrived in ED on 05/13 with complaints of shaking episodes and weakness.) Past Medical/Surgical Hx: PAST MEDICAL/SURGICAL HISTORY Past Surgical History back surgery, gastric bypass cholecystectomy hysterectomy appendectomy ruptered diverticulum left hip replacement PMH - Respiratory Hx Respiratory Disorders Yes Hx Asthma Yes Hx Pneumonia Yes Hx Sleep Apnea Yes: WEARS O2 AT HOME Hx of CPAP Yes PMH - Cardiovascular Hx Cardiovascular Disorders Yes Hx Hypertension Yes Hx Irregular Heartbeat Yes: no medications PMH - Neuro Hx Neurological Disorders Yes Hx Headaches Yes: sinus PMH - GI Hx Gastrointestinal Disorders Yes Hx Abdominal Pain Yes Hx Gastroesophageal Reflux Yes Hx Hiatal Hernia Yes: repaired Hx Weight Loss/Weight Gain Yes: 200lb loss since bypass PMH - Hx Genitourinary Disorders Yes Patient No Hx Bladder Problem Yes: cystocele/rectocele Hx Urinary Tract Infection Yes PMH - Endocrine Hx Endocrine Disorders Yes Hx Diabetes No Hx Thyroid Disease Yes PMH - Musculoskeletal Hx Arthritis Yes Hx Fibromyalgia Yes Hx Osteoporosis No PMH - Psych Hx Psychiatric Problems Yes Hx Depression Yes PMH - Hematology/Oncology Hx Hematology/Oncology No Disorders Hx Blood Disorders Yes: pernicious anemia after bypass Premorbid Status: Detail (Prior to admisssion the patient was independent with ADL's and was ambulatory with a 4 wheeled walker outdoors and a 2 wheeled walker indoors. The patient used an electric scooter when shopping. The patient was completing feed crusher including cooking, dishes and folding clothes. The patient's was assisting with other chores. The patient was walking 2 miles in a pool and completing an exercise program in the pool prior to admission to [facility].) Social History: Detail (The patient lives in a travel trailer with 4 steps at the enterance and one railing. The bathroom is equipped with a walk in shower and an elevated toilet seat. There are no grab bars in the bathroom. The patient has a 4 wheeled walker, a front wheeled walker and an electric scooter.) Precautions: [place], Fall - Time With Patient Total Time Spent With Patient (Min): 30 Treatment Procedures: Detail (Initial Evaluation, low complexity.) Subjective Information - Subjective Information Per Patient (The patient had complaints of pain "everywhere" level 5-6 at the highest using 0-10 pain scale. The patient no longer has complaints of "shaking" and is anxious to go home. Patient denies frequent falls.) Objective Data - Mental Status Patient Orientation: Oriented x3 - Visual Perception Appears within normal limits for therapeutic activities - ROM Within normal limits (LE AROM was WFL.) - Strength/Tone Not within normal limits (The patient's LE strength was generally 4+ to 5/5 except for L dorsiflexors 4-/5, bilateral hip flexors and adductors 4-/5.) - Bed Mobility Independent (The patient was independent with supine to sit transfer.) - Transfers Independent (The patient was indpendent with sit to and from stand transfer.) - Balance Balance Sitting: Good Balance Standing: Poor (The patient was unable to stand without support of walker. The patient reports that when in the bathroom completing hygiene and using two hands she supports herself by leaning against a wall.) - Sensation Deficit (diminished sensation to light touch is present in bilateral feet dorsal and plantar surface and lateral calves.) - Gait Detail (The patient ambulated independently with front wheeled walker a distance of 60 feet. The patient's gait pattern is charecterized by decreased heel to toe weight shift forward (waddling gait pattern).) Therapy Assessment - Therapy Assessment Detail (The patient exhibits decreased balance in standing. Patient reports she feels she is functioning at her previous functional level. The patient states she has had Home PT in the past and finds pool exercies are the most benefical for her. Ongoing PT is not recommended at this time due to independence with mobility. Patient is aware of fall prevention techniques at home.) Problem List - Problem List Physical Therapy Problem List: Detail (1) Decreased standing balance 2) LE weakness in some muscle groups) Goals - Goals Physical Therapy Goals: No further PT goals are identified at this time. The patient is independent with exercise program in the pool and in fall prevention techniques. Plan - Plan Physical Therapy Plan: No ongoing PT is recommended. Patient is to continue with her Pool exercise program.
--- NOTE | 2019-05-14 11:52 | Rehab Evaluation ---
Patient Information - Patient Information Diagnosis: dehydration, weakness Ordered Treatment: OT Evaluate and Treat Status: Initial Evaluation Surgery: No History: Detail (Patient arrived in ED on 05/13 with complaints of shaking episodes and weakness.) Past Medical/Surgical Hx: PAST MEDICAL/SURGICAL HISTORY Past Surgical History back surgery, gastric bypass cholecystectomy hysterectomy appendectomy ruptered diverticulum left hip replacement PMH - Respiratory Hx Respiratory Disorders Yes Hx Asthma Yes Hx Pneumonia Yes Hx Sleep Apnea Yes: WEARS O2 AT HOME Hx of CPAP Yes PMH - Cardiovascular Hx Cardiovascular Disorders Yes Hx Hypertension Yes Hx Irregular Heartbeat Yes: no medications PMH - Neuro Hx Neurological Disorders Yes Hx Headaches Yes: sinus PMH - GI Hx Gastrointestinal Disorders Yes Hx Abdominal Pain Yes Hx Gastroesophageal Reflux Yes Hx Hiatal Hernia Yes: repaired Hx Weight Loss/Weight Gain Yes: 200lb loss since bypass PMH - Hx Genitourinary Disorders Yes Patient No Hx Bladder Problem Yes: cystocele/rectocele Hx Urinary Tract Infection Yes PMH - Endocrine Hx Endocrine Disorders Yes Hx Diabetes No Hx Thyroid Disease Yes PMH - Musculoskeletal Hx Arthritis Yes Hx Fibromyalgia Yes Hx Osteoporosis No PMH - Psych Hx Psychiatric Problems Yes Hx Depression Yes PMH - Hematology/Oncology Hx Hematology/Oncology No Disorders Hx Blood Disorders Yes: pernicious anemia after bypass Premorbid Status: Detail (Prior to admisssion the patient was independent with ADL's and was ambulatory with a 4 wheeled walker outdoors and a 2 wheeled walker indoors. The patient used an electric scooter when shopping. The patient was completing blockman including cooking, dishes and folding clothes. The patient's was assisting with other chores. The patient was walking 2 miles in a pool and completing an exercise program in the pool prior to admission to [facility].) Social History: Detail (The patient lives with spouse in a travel trailer with 4 steps at the entrance and one railing. The bathroom is equipped with a walk in shower and an elevated toilet seat. There are no grab bars in the bathroom. The patient has a 4 wheeled walker, a front wheeled walker and an electric scooter.) Precautions: [place], Fall - Time With Patient Total Time Spent With Patient (Min): 30 Treatment Procedures: Detail (OT eval low complexity) Subjective Information - Subjective Information Per Patient Objective Data - Pain Pain Present: Yes (5-6/10 pain everywhere) - Mental Status Patient Orientation: Oriented x3 - Visual Perception Appears within normal limits for therapeutic activities - ROM Not within normal limits (Pt reports left shoulder pain due to bursitis premorbidly. Nash shoulder flexion 100 degrees, remaining nash UE AROM WNL.) - Strength/Tone Within normal limits (Nash UE strength 4 to 4+/5 throughout with pain during left shoulder motion.) - Coordination Appears within normal limits for therapeutic activities - Bed Mobility Independent (Ind with supine to sit) - Transfers Independent (Ind with sit to stand from EOB) - Balance Balance Sitting: Good Balance Standing: Fair (Fair with use of walker) - Sensation Intact - Gait Detail (Pt ambulating in hallway with 2 wheeled walker and SBA) - ADL's/IADL's Detail (Pt reports no concerns about ADLs. She did not have any clothing available for eval.) Therapy Assessment - Therapy Assessment Detail (Pt reports no concerns for discharge and she reports she is ready to go home. Pt was Ind with bed mobility and has no functional limitations at this time.) Problem List - Problem List Occupational Therapy Problem List: Detail (No current IP OT problems identified.) Goals - Goals Occupational Therapy Goals: No current IP OT goals identified. Prognosis - Prognosis Good Plan - Plan Occupational Therapy Plan: No further IP OT recommended. Thank you for this referral.
--- NOTE | 2019-05-14 15:20 | Discharge Note ---
VTE H&P Assessment - Risk for VTE Risk for VTE: Yes Risk Level: Moderate Risk Assessment Date: 05/14/19 Risk Assessment Time: 15:21 VTE Orders Placed or Will Be Placed: Yes VTE Reason for No Prophylaxis: Not Indicated Discharge Medications - Discharge Medications Prescriptions: Duloxetine HCl [Cymbalta] 30 mg PO DAILY #30 capsule. Oxycodone HCl [Oxycodone HCl ER] 10 mg PO DAILY #10 tab.er Home Medications: Ambulatory Orders Amlodipine Besylate 5 mg PO DAILY 03/24/18 [Last Taken 1 Day Ago ~05/12/19] Baclofen 10 mg PO DAILY 03/24/18 [Last Taken 1 Day Ago ~05/12/19] Gabapentin [Neurontin] 600 mg PO TID 03/24/18 [Last Taken 1 Day Ago ~05/12/19] Levothyroxine Sodium 200 mcg PO DAILY 03/24/18 [Last Taken 1 Day Ago ~05/12/19] Melatonin 10 mg PO QHS 03/24/18 [Last Taken 1 Day Ago ~05/12/19] Omeprazole 20 mg PO DAILY 03/24/18 [Last Taken 1 Day Ago ~05/12/19] Ipratropium/Albuterol [Duoneb] 3 ml INH RESP.Q6H.WA PRN #30 ampul.neb 03/26/18 [Last Taken 1 Day Ago ~05/12/19] Triamcinolone Acetonide [Trianex] 1 apply TP BID #15 g 05/25/18 [Last Taken 1 Day Ago ~05/12/19] Ferrous Sulfate 325 mg PO BID 05/13/19 [Last Taken 1 Day Ago ~05/12/19] Fluticasone/Vilanterol 200/25 [Breo Ellipta 200-25 Mcg INH] 1 puff INH RESP.DAILY 05/13/19 [Last Taken 1 Day Ago ~05/12/19] Meloxicam [Mobic] 15 mg PO DAILY 05/13/19 [Last Taken 1 Day Ago ~05/12/19] Multivitamin [Multiple Vitamins] 1 each PO DAILY 05/13/19 [Last Taken 1 Day Ago ~05/12/19] Primidone [Mysoline] 200 mg PO QHS 05/13/19 [Last Taken 1 Day Ago ~05/12/19] Duloxetine HCl [Cymbalta] 30 mg PO DAILY #30 capsule. 05/14/19 [Last Taken Unknown] Oxycodone HCl [Oxycodone HCl ER] 10 mg PO DAILY #10 tab.er 05/14/19 [Last Taken Unknown] Discharge Note - Date Date of Discharge Note: 05/14/19 Disposition: Home, Self-Care Condition: (2) Stable Additional Instructions: follow up with Dr Aniket Shahid in 5- 8 days decrease pain pills of oxycodone to one pill per day, and use tylenol the rest of the day decrease the cymbalta to 30 mg one a day and script for 30 days given to the patient. Patient thought the cymbalta 60 mg a day was causing the problem. Referrals: ANIKET SHAHID [Primary Care Provider] - Forms: Patient Portal Access Activity at Discharge: Increase Activity as Tolerated Diet at Discharge: Low Salt Diet
[2019-05-14] MEDS ORDERED: ENOXAPARIN 40 MG/0.4 ML SYR SQ ONE (15:30)
[2019-05-14] MEDS ORDERED: MELATONIN 5 MG TABLET PO SCH (22:00)
[2019-05-14] MEDS ORDERED: MYSOLINE PO SCH (22:00)
--- NOTE | 2019-05-15 07:51 | Discharge Summary ---
DISCHARGE DIAGNOSES: 1. Dehydration. 2. Possible adverse reaction to oxycodone. 3. Possible adverse reaction to Cymbalta. 4. Tremors, unknown etiology unless from above. 5. Status post arthritis of thel otherwise back and chronic low back pain, using narcotics; oxycodone 10 mg about twice a day. 6. History of gastroesophageal reflux disease. 7. Insomnia. 8. Hypothyroidism. 9. Chronic obstructive pulmonary disease. 10. Hypertension. ATTENDING PHYSICIAN: Sorin Echevarria DO REASON FOR HOSPITALIZATION: This 73-year-old female was having weakness, shakes, unable to ambulate from the ER. It has been going on for about 2 days. She in the emergency department had a Fem-Cath urine which showed no urinary tract infection. SIGNIFICANT FINDINGS: Chest x-ray was essentially negative. Laboratory was essentially negative for infection. WBC 12,200, slightly elevated, hemoglobin 14.6, potassium 4.5, sodium 144, anion gap 15, BUN 24, creatinine 1. Chest x-ray showing low lung volumes, mixed primary reticular opacities in perihilar and basal portion of the lungs. Diagnostic consideration includes chronic interstitial changes versus edema and infiltrate. Apparent [id number] prominence of the right hilum is stable since 05/24/2018. THERAPY PROVIDED: The patient was given IV fluids. The pain medication was stopped and the Cymbalta was given. The patient was much better the next day. Not lethargic or sleepy and weak. Walking in the hallway. No shakes. The best I can figure maybe she is just intolerant to the narcotics and the Cymbalta she was taking. I recommended she take 1/2 oxycodone in the morning and 1/2 at night and 1/2 of the Cymbalta to see if she does better with that dose. HOSPITAL COURSE: Improved dramatically. Ready to go home. CONDITION ON DISCHARGE: Much improved. DISCHARGE INSTRUCTIONS: Follow up with Dr. Aniket Sarkar in 5-7 days. Decrease the oxycodone to 1/2 pill b.i.d. Decrease the Cymbalta to 30 mg a day. Use Tylenol 650 q.6 h. p.r.n. pain. We gave her 1 shot of Lovenox in the hospital to prevent DVTs, 40 mg subcu. MTDD
--- NOTE | 2019-05-15 07:51 | History and Physical Report ---
CHIEF COMPLAINT: Weakness, shaking. HISTORY OF PRESENT ILLNESS: This 73-year-old female states she was weak trying to get out of her chair after leaving the bathroom, unable to get up. She states she felt shaky the whole way back to the chair. She kind of sat down hard, could not get up. An ambulance was called and she was brought to the emergency department and evaluated by me. Workup was essentially negative in the emergency department; however, she was too weak to get up and walk. She was dehydrated. She said the shaking episodes have been going on for 2 days. Because of her inability to ambulate and her dehydration, she was put in the hospital for cautious hydration and further evaluation. PAST MEDICAL HISTORY: Insomnia, GERD, chronic low back pain and using oxycodone 10 mg she says twice a day, multiple vitamins, Mobic 15 mg a day. She also has hypothyroidism and arthritis. She has COPD, iron deficiency anemia, hypertension. She has sleep apnea and uses CPAP at home. She has fibromyalgia, pernicious anemia, gastric bypass about 5 years ago and lost 200 pounds. She was at about 490 pounds prior to surgery. PAST SURGICAL HISTORY: Gastric bypass 5 years ago, back surgery, cholecystectomy, hysterectomy, appendectomy, ruptured diverticulum repair. MEDICATIONS: 1. Mysoline 200 mg at h.s. 2. Melatonin 10 mg at h.s. 3. Oxycodone 10 mg q.6 h. p.r.n. but she states that she only takes it 2 times a day; morning and night. 4. Omeprazole 20 mg daily. 5. Multiple vitamins 1 daily. 6. Meloxicam 15 mg daily. 7. Levothyroxine 200 mcg daily. 8. DuoNeb treatments q.6 h. p.r.n. 9. Neurontin 600 mg t.i.d. 10. Breo Ellipta 1 puff daily. 11. Ferrous sulfate 325 b.i.d. 12. Duloxetine 60 mg daily at night. 13. Baclofen 10 mg daily. 14. Amlodipine 5 mg daily. ALLERGIES: IODINE, PENICILLIN, LYRICA, SULFA, TETRACAINE. FAMILY/PSYCHOSOCIAL HISTORY: Cancer with a brother and sister. Mother had diabetes. Father had heart disease. Mother had heart disease and hypertension in the mother. She is a former smoker but quit in 1979. No alcohol or drug use. REVIEW OF SYSTEMS: HEENT: No sore throat cough, cold, or congestion. She did have chills and shakes in the emergency department yesterday, mostly when moving. Cardiovascular: No chest pain, palpitations, or arrhythmia. Respiratory: No cough, cold, or congestion. Gastrointestinal: She is obese. No abdominal pain or dysphagia or nausea. Genitourinary: No dysuria, hematuria, frequency, or burning on urination. Musculoskeletal: She has arthritis and low back pain which is chronic. Neurological: No CVA, paralysis, or paresthesias. Gynecological: No lumps in her breasts or abnormal vaginal bleeding. Endocrine: She has hypothyroidism. No diabetes. Integument: No rash, ulcers, change in moles, or yellow skin. PHYSICAL EXAMINATION: VITALS: Height 5 feet 8 inches, weight 294 pounds. Temperature 97.6, pulse 74, blood pressure 168/73, respiratory rate 20, pulse ox 97% on room air. HEENT: Pupils are equal, round, and reactive to light and accommodation. Extraocular muscles are intact. Throat is clear. Nose is clear. Tympanic membranes are lilly. NECK: Supple. No jugular venous distention. No hepatojugular reflux. Carotid pulses equal bilaterally. Thyroid is smooth. CARDIOVASCULAR: Regular rate and rhythm without murmurs, clicks, rubs, or gallops. RESPIRATORY: Clear to auscultation and percussion. ABDOMEN: Soft, nontender. No hepatosplenomegaly, no masses, no tenderness. Bowel sounds are active. No bruits. EXTREMITIES: No pitting edema. No cyanosis, no clubbing. Full range of motion. Peripheral pulses are good. BREASTS: Exam deferred. GYNECOLOGICAL: Exam deferred. RECTAL: Exam deferred. NEUROLOGIC: Cranial nerves II-XII intact. No gross defects. Sensation normal, strength normal. Deep tendon reflexes equal bilaterally with Babinski negative. MENTAL STATUS: Alert and oriented x3. IMPRESSION: 1. Dehydration. 2. Tremors. 3. Weakness, unable to ambulate. PLAN: Admit. IV hydration. Further evaluation. [facility]
--- NOTE | 2019-05-15 07:51 | Discharge Summary ---
ADDENDUM After talking to the patient in detail, she reassured me that she is taking the short-acting oxycodone which is 10 mg pills, and I still do not like to break them in half, so I decided to just have her take 1 pill in case they are the long-acting pill and take Tylenol the rest of the day; two 325 Tylenol 3 times a day but not to exceed 4 g in 24 hours, and to decrease the Cymbalta to 30 mg a day. I did not send prescriptions home with her with the long-acting OxyContin or the short-acting OxyContin because she already has these pain medications through her primary doctor. CHRISTOPHER
--- NOTE | 2019-05-15 15:20 | Discharge Summary ---
ADDENDUM After reviewing her home medications, it was difficult to tell what kind of oxycodone she is taking. It sounds like she is taking the OxyContin long-acting medication. I told her to break it in half. I decided to change that instruction and make it only take 1 OxyContin 10 mg pill a day, and I gave her a prescription for 10 pills. Also, with the Cymbalta, she was concerned the Cymbalta which was recently increased to 60 mg may have been causing the shakes and weakness, so I gave her a prescription with a reduced dose of 30 mg once a day for a month. She is to follow up with her family doctor for further advice on her medications. CHRISTOPHER
== END 2019-05-14 16:24 | disposition home or self-care (01) ==
LOC: ER 13:40 → MEDSURG 17:11
PROVIDERS: ADMIT Emergency Medicine; ATTEND Emergency Medicine
DX: E86.0 Dehydration (principal); R53.83 Other fatigue; I10 Essential (primary) hypertension; E03.9 Hypothyroidism, unspecified; J45.909 Unspecified asthma, uncomplicated; G47.33 Obstructive sleep apnea (adult) (pediatric); K21.9 Gastro-esophageal reflux disease without esophagitis; M19.90 Unspecified osteoarthritis, unspecified site; M79.7 Fibromyalgia; D51.0 Vitamin B12 deficiency anemia due to intrinsic factor deficiency; Z87.891 Personal history of nicotine dependence; Z86.14 Personal history of Methicillin resistant Staphylococcus aureus infection
CPT/HCPCS: 85025; 80048; 81001; 71046; 94640 ×2; G0378 ×2; J3490; 96365; 96366; 99217; 99220; 99285; J1650